=== PATIENT | male | born 1980 | race Caucasian/White ===

== ENCOUNTER 2020-03-22 06:38 | Outpatient (CLI) | payer OTHER ==
[2020-03-23 18:05] LABS: SARS-CoV-2 MS2 Positive; SARS-CoV-2 N Gene Negative; SARS-CoV-2 S Gene Negative; SARS-CoV-2 orf1ab Negative
== END 2020-03-22 06:39 | disposition home or self-care (01) ==
LOC: LABBT 06:38
PROVIDERS: ATTEND Specialist
DX: Z01.812 Encounter for preprocedural laboratory examination (principal); Z11.59 Encounter for screening for other viral diseases; J34.3 Hypertrophy of nasal turbinates; J32.3 Chronic sphenoidal sinusitis; J32.2 Chronic ethmoidal sinusitis; J34.2 Deviated nasal septum; J33.9 Nasal polyp, unspecified; R09.81 Nasal congestion
CPT/HCPCS: 87635; U0003

== ENCOUNTER 2020-03-24 06:00 | Day surgery (SDC) | payer OTHER ==
[2020-03-23 09:06] VITALS: BMI 32.8
[2020-03-24] MEDS ORDERED: Lidocaine 1% w/Epinephrine 1:100K 20 ML VIAL ONE (06:50)
[2020-03-24] MEDS ORDERED: EPINEPHrine 1 MG/ML AMP ONE (06:50)
[2020-03-24] MEDS ORDERED: AFRIN NASAL MIST 15 ML BOT ONE ×2 (06:50→07:57)
[2020-03-24] MEDS ORDERED: Midazolam HCl 2 mg/2 ml Vial ONE (08:53)
[2020-03-24] MEDS ORDERED: Fentanyl 100 MCG/2 ML VIAL ONE ×3 (08:53→11:07)
[2020-03-24] MEDS ORDERED: Bacitracin Zinc Ointment 30 gm TUBE ONE (09:44)
[2020-03-24] MEDS ORDERED: Triamcinolone 40 MG/ML VIAL ONE (10:10)
[2020-03-24] MEDS ORDERED: Lidocaine 1% PF 5 ML VIAL ONE (12:19)
[2020-03-24] MEDS ORDERED: Dexamethasone 20 MG/5 ML VIAL ONE (12:19)
[2020-03-24] MEDS ORDERED: Labetalol HCl 100 MG/20 ML VIAL ONE (12:19)
[2020-03-24] MEDS ORDERED: PROPOFOL 200 MG/20 ML VIAL ONE (12:19)
[2020-03-24] MEDS ORDERED: Ondansetron PF 4 MG/2 ML Vial ONE (12:19)
[2020-03-24] MEDS ORDERED: Succinylcholine Chloride 20 MG/ML 10 ml SYRINGE FS ONE (12:19)
[2020-03-24] MEDS ORDERED: Rocuronium Bromide 10 MG/ML (10ML VIAL) ONE (12:19)
[2020-03-24] MEDS ORDERED: HYDROcodone/Acetaminophen 5/325 mg Tablet ONE (13:33)
--- NOTE | 2020-03-25 12:41 | OP ---
DATE OF PROCEDURE: 03/24/2020 PREOPERATIVE DIAGNOSES: 1. Chronic sinusitis. 2. Recurrent sinusitis. POSTOPERATIVE DIAGNOSES: 1. Chronic sinusitis. 2. Recurrent sinusitis. PROCEDURES PERFORMED: 1. Bilateral nasal endoscopy with maxillary antrostomy. 2. Bilateral nasal endoscopy with total ethmoidectomy. 3. Bilateral nasal endoscopy with frontal sinusotomy. 4. Bilateral nasal endoscopy with submucosal resection of inferior turbinates. DESCRIPTION OF PROCEDURE: BILATERAL NASAL ENDOSCOPY WITH MAXILLARY ANTROSTOMY: The uncinate was then identified and the extent of the uncinate was appreciated by out-fracturing the uncinate with the ball-tip probe. We then used the sickle blade to disarticulate the uncinate from the lateral nasal wall. This was then removed with straight biting and upbiting punches with the remaining shrouds of mucosa and bony septum removed with the micro-debrider. The natural os of the maxillary sinus was then identified and enlarged with the maxillary punches and back biting forceps. BILATERAL NASAL ENDOSCOPY WITH TOTAL ETHMOIDECTOMY: The anterior face of the ethmoid bulla was entered and with the micro-debrider, dissection continued posteriorly to the ground lamella. The limits of dissection included the insertion of the middle turbinate, medial orbital wall, and base of skull. We similarly identified the frontal recess and removed shrouds of bone and debris in that region to obtain patency into the agger nasi region and frontal recess. We then entered the ground lamella and its anteroinferior aspect and proceeded posteriorly, opening the posterior ethmoid air-cell system. Again, the limits of dissection included the base of skull and medial orbital wall. BILATERAL NASAL ENDOSCOPY WITH FRONTAL SINUSOTOMY: Following the ethmoidectomy, we then turned our attention to the frontal nasal recess. The agger nasi cells were addressed and the frontal recess was exposed. The natural opening to the frontal sinus was identified. At this point, any obstructing shrouds of mucosa and bony fragments were removed with a curved microdebrider. The wound was then examined and found to be free of any obstructing debris. We then turned our attention to the contralateral side and performed a similar procedure again under endoscopic visualization using a 45-degree scope. We were able to visualize the frontal recess. Obstructing shrouds of mucosa and bone were removed with a microdebrider. The natural os of frontal sinus was identified and enlarged and irrigated. At this point, the frontal sinusotomy was completed and we turned to the next area of concern. BILATERAL NASAL ENDOSCOPY WITH SUBMUCOSAL RESECTION OF INFERIOR TURBINATES: After consent was obtained, the patient was identified, brought to the operating room, and placed on the operating room table in the supine position. Consent was obtained, notifying the patient of the possibility of additional infections, bleeding, brain injury, and eye/orbital injury. The patient was placed on the operating room table, and general endotracheal anesthesia and intravenous access was obtained. The patient was then positioned, prepped and draped for endoscopic sinus surgery. Nasal preparation included trimming nasal vestibular hairs and spraying in topical Afrin. We then placed Afrin topical solution on nasal pledgets and strategically located them intranasally. The perinasal mucosa was injected with 1% lidocaine with 1:100,000 epinephrine in the submucoperichondrial plane of the septum, lateral nasal wall, and anterior to the uncinate. The patient was then prepped and draped in a sterile fashion and positioned for endoscopic sinus surgery. With the 0-degree endoscope, the patient underwent systematic nasal endoscopy. There were no suspicious internasal masses or lesions identified. We then focused our attention to the osteomeatal complex region under the middle turbinate. The inferior turbinates were visualized with a 0 degree endoscope and outfractured with a Lucrecia elevator. The inferior medial aspect was cauterized with the electrocautery. Hemostasis was obtained . After adequate airway was established, we turned our attention to the contralateral side and used a similar procedure. Again, a Upperglade elevator was used to outfracture inferior turbinates under endoscopic visualization. With a suction cautery, the free inferior medial aspect was cauterized under direct visualization along the length of the inferior turbinate. At this point, we then turned our attention to the contralateral side and proceeded with endoscopic sinus surgery. At the completion of the case, Rice keel splints were placed in the ethmoid cavities after the ethmoidectomy. There were no complications. The patient tolerated the procedure well and was discharged to the recovery room in stable condition prior to return to the preoperative day stay with ultimate discharge home. Prescriptions for pain medication and antibiotics were provided. The patient received intramuscular Depo-Medrol during the case. Job ID: [id number]
[2020-03-28 11:37] LABS: Fungus Stain Final report (.)
== END 2020-03-24 14:05 | disposition home or self-care (01) ==
LOC: SDC 06:00
PROVIDERS: ATTEND Specialist
PROC: 09BU8ZZ Excision of Right Ethmoid Sinus, Via Natural or Artificial Opening Endoscopic (ICD-10-PCS; principal; 2020-03-24)
PROC: 09BV8ZZ Excision of Left Ethmoid Sinus, Via Natural or Artificial Opening Endoscopic (ICD-10-PCS; principal; 2020-03-24)
PROC: 09BT8ZZ Excision of Left Frontal Sinus, Via Natural or Artificial Opening Endoscopic (ICD-10-PCS; principal; 2020-03-24)
PROC: 09BS8ZZ Excision of Right Frontal Sinus, Via Natural or Artificial Opening Endoscopic (ICD-10-PCS; principal; 2020-03-24)
PROC: 099R8ZZ Drainage of Left Maxillary Sinus, Via Natural or Artificial Opening Endoscopic (ICD-10-PCS; principal; 2020-03-24)
PROC: 099Q8ZZ Drainage of Right Maxillary Sinus, Via Natural or Artificial Opening Endoscopic (ICD-10-PCS; principal; 2020-03-24)
PROC: 09BL8ZZ Excision of Nasal Turbinate, Via Natural or Artificial Opening Endoscopic (ICD-10-PCS; principal; 2020-03-24)
DX: J32.8 Other chronic sinusitis (principal); J34.2 Deviated nasal septum; J34.3 Hypertrophy of nasal turbinates; J33.9 Nasal polyp, unspecified; Z87.891 Personal history of nicotine dependence; Z88.1 Allergy status to other antibiotic agents
CPT/HCPCS: 87070; 87102; 87205; 87206; J0171; J1100; J2001; J2250; J2405; J2704; J3010; J3301

== ENCOUNTER 2021-01-05 06:37 | Day surgery (SDC) | payer BC ==
[2021-01-04 14:14] VITALS: BMI 33.4
[2021-01-05] MEDS ORDERED: Midazolam HCl 2 mg/2 ml Vial ONE ×2 (07:26→08:03)
[2021-01-05] MEDS ORDERED: Ondansetron PF 4 MG/2 ML Vial ONE ×2 (07:26→08:10)
[2021-01-05] MEDS ORDERED: Lidocaine 1% w/Epinephrine 1:100K 20 ML VIAL ONE (07:59)
[2021-01-05] MEDS ORDERED: AFRIN NASAL MIST 15 ML BOT ONE ×2 (07:59→08:41)
[2021-01-05] MEDS ORDERED: Fentanyl 100 MCG/2 ML VIAL ONE ×2 (08:03→10:42)
[2021-01-05] MEDS ORDERED: Dexamethasone 20 MG/5 ML VIAL ONE (08:10)
[2021-01-05] MEDS ORDERED: Rocuronium Bromide 10 MG/ML (10ML VIAL) ONE (08:10)
[2021-01-05] MEDS ORDERED: Succinylcholine 200 MG/10 ml SYRINGE FS ONE (08:10)
[2021-01-05] MEDS ORDERED: Lidocaine 1% PF 5 ML VIAL ONE (08:10)
[2021-01-05] MEDS ORDERED: PROPOFOL 200 MG/20 ML VIAL ONE (08:10)
[2021-01-05] MEDS ORDERED: Glycopyrrolate 0.2 MG/ML 5 ML SYRINGE ONE (08:10)
[2021-01-05] MEDS ORDERED: EPINEPHrine 1 MG/ML AMP ONE (08:41)
[2021-01-05] MEDS ORDERED: Triamcinolone 40 MG/ML VIAL ONE (09:00)
[2021-01-05] MEDS ORDERED: Hydrocodone-Acetamin 15 ML UDCUP ONE (11:41)
== END 2021-01-05 12:20 | disposition home or self-care (01) ==
LOC: SDC 06:37
PROVIDERS: ATTEND Specialist
PROC: 09BV0ZZ Excision of Left Ethmoid Sinus, Open Approach (ICD-10-PCS; principal; 2021-01-05)
PROC: 099R8ZZ Drainage of Left Maxillary Sinus, Via Natural or Artificial Opening Endoscopic (ICD-10-PCS; principal; 2021-01-05)
PROC: 09BS8ZZ Excision of Right Frontal Sinus, Via Natural or Artificial Opening Endoscopic (ICD-10-PCS; principal; 2021-01-05)
PROC: 8E09XBZ Computer Assisted Procedure of Head and Neck Region (ICD-10-PCS; principal; 2021-01-05)
PROC: 099Q8ZZ Drainage of Right Maxillary Sinus, Via Natural or Artificial Opening Endoscopic (ICD-10-PCS; principal; 2021-01-05)
PROC: 09BT8ZZ Excision of Left Frontal Sinus, Via Natural or Artificial Opening Endoscopic (ICD-10-PCS; principal; 2021-01-05)
PROC: 09BU0ZZ Excision of Right Ethmoid Sinus, Open Approach (ICD-10-PCS; principal; 2021-01-05)
DX: J32.4 Chronic pansinusitis (principal); J34.2 Deviated nasal septum; J34.3 Hypertrophy of nasal turbinates; J33.8 Other polyp of sinus; Z79.899 Other long term (current) drug therapy; Z88.0 Allergy status to penicillin
CPT/HCPCS: J0171; J1100; J2250; J2405; J2704; J3010; J3301